=== PATIENT | female | born 1995 | race Caucasian/White ===

== ENCOUNTER → 2022-01-18 | Outpatient (CLI) | payer OTHER | LOC: LAB 11:07 | DX: Z32.00 Encounter for pregnancy test, result unknown (principal) | CPT/HCPCS: 36415; 84702; 86900; 86901 ==

== ENCOUNTER → 2022-02-19 | Day surgery (SDC) | payer OTHER ==
[2022-02-19 06:32] LABS: HEMOGLOBIN 13.5 gm/dl (12.3-15.3); RED BLOOD COUNT 4.27 M/UL (4.00-5.10); WHITE BLOOD COUNT 5.9 K/UL (4.5-11.0)
== END | disposition home or self-care (01) ==
LOC: OR 05:05
PROVIDERS: Obstetrics & Gynecology
DX: O03.4 Incomplete spontaneous abortion without complication (principal)
CPT/HCPCS: 36415; 81001; 85025; J1100; J1885; J2001; J2250; J2405; J2704; J2795; J3010; J7030

== ENCOUNTER → 2022-03-24 | Outpatient (CLI) | payer OTHER | LOC: LAB 09:56 | DX: O02.0 Blighted ovum and nonhydatidiform mole (principal); O08.89 Other complications following an ectopic and molar pregnancy | CPT/HCPCS: 36415; 84702 ==

== ENCOUNTER → 2022-04-02 | Outpatient (CLI) | payer OTHER ==
[2022-04-02 20:14] LABS: BUN/CREATININE RATIO 20 (0-10)
== END ==
LOC: LAB 18:04
PROVIDERS: Obstetrics & Gynecology
DX: O02.0 Blighted ovum and nonhydatidiform mole (principal); O01.0 Classical hydatidiform mole
CPT/HCPCS: 71046; 80053

== ENCOUNTER → 2022-04-04 | Outpatient (CLI) | payer OTHER ==
[~2022-04-04] VITALS: Ht 175.3 cm; Wt 75.7 kg
== END ==
LOC: OPSV 07:00
DX: O02.0 Blighted ovum and nonhydatidiform mole (principal); O01.0 Classical hydatidiform mole; Z3A.00 Weeks of gestation of pregnancy not specified
CPT/HCPCS: 84702; 96372; J9250

== ENCOUNTER → 2022-04-05 | Outpatient (CLI) | payer OTHER ==
[~2022-04-05] VITALS: Ht 175.3 cm; Wt 75.7 kg
== END ==
LOC: OPSV 07:00
DX: O02.0 Blighted ovum and nonhydatidiform mole (principal)
CPT/HCPCS: 96372; J0640

== ENCOUNTER → 2022-04-06 | Outpatient (CLI) | payer OTHER ==
[~2022-04-06] VITALS: Ht 175.3 cm; Wt 75.7 kg
== END ==
LOC: OPSV 06:54
DX: O02.0 Blighted ovum and nonhydatidiform mole (principal); O01.0 Classical hydatidiform mole; Z3A.00 Weeks of gestation of pregnancy not specified
CPT/HCPCS: 96372; J9250

== ENCOUNTER → 2022-04-07 | Outpatient (CLI) | payer OTHER | LOC: OPSV 06:50 | DX: O02.0 Blighted ovum and nonhydatidiform mole (principal); O01.0 Classical hydatidiform mole | CPT/HCPCS: 96372; J0640 ==

== ENCOUNTER → 2022-04-09 | Outpatient (CLI) | payer OTHER | LOC: OPSV 06:52 | DX: O02.0 Blighted ovum and nonhydatidiform mole (principal); O01.0 Classical hydatidiform mole; Z3A.00 Weeks of gestation of pregnancy not specified | CPT/HCPCS: 96372; J0640 ==

== ENCOUNTER → 2022-04-10 | Outpatient (CLI) | payer OTHER ==
[~2022-04-10] VITALS: Ht 175.3 cm; Wt 75.7 kg
== END ==
LOC: OPSV 06:53
DX: O02.0 Blighted ovum and nonhydatidiform mole (principal); O01.0 Classical hydatidiform mole
CPT/HCPCS: 96372; J9250

== ENCOUNTER → 2022-04-11 | Outpatient (CLI) | payer OTHER ==
[~2022-04-11] VITALS: Ht 175.3 cm; Wt 75.7 kg
== END ==
LOC: OPSV 07:00
DX: O02.0 Blighted ovum and nonhydatidiform mole (principal)
CPT/HCPCS: 96372; J0640

== ENCOUNTER → 2022-05-02 | Outpatient (CLI) | payer OTHER | LOC: LAB 14:15 | DX: C58 Malignant neoplasm of placenta (principal) | CPT/HCPCS: 36415; 84702 ==

== ENCOUNTER → 2022-05-18 | Outpatient (CLI) | payer OTHER | LOC: LAB 16:01 | DX: O01.9 Hydatidiform mole, unspecified (principal) | CPT/HCPCS: 36415; 84702 ==